=== PATIENT | female | born 1945 | race Caucasian/White ===

== ENCOUNTER → 2017-06-02 | Outpatient (CLI) | payer BC, MEDICARE ==
[2016-02-28 07:53] VITALS: BP 112/66
[~2017-06-02] MED LIST: ASPI-630 PO; BUDE10.2 IH; ESTR1TAB15 PO; FERR15DR17 PO; FEXO180T16 PO; GLYB2.5T2 PO; HYDR25SU4 RC; INSU100I13 SQ; INSU100I7 SQ; LORA-434 PO; LOSA25TA4 PO; MAGN250T10 PO; OMEP20TA8 PO; QUIN324C PO; SENN1TAB99 PO; SITA1TAB11 PO
--- NOTE | 2017-06-02 15:41 | RAD ---
Left breast ultrasound, 06/02/2017: History: Abnormal mammogram Outside mammograms from 11/24/2016 demonstrated an 8 mm nodule in the upper inner quadrant of the left breast. Reportedly the other scattered fibroglandular densities were stable compared to prior exams. Diagnostic mammography and sonography of this nodule was recommended on the outside report, but apparently not performed. The patient presents at this institution for sonographic evaluation of this nodule. The upper inner quadrant of the left breast was carefully scanned. There is a 6 mm hypoechoic nodule at the 9:30 location located 3 cm from the nipple. This may correspond to the mammographic abnormality, however, that cannot be stated with certainty. The nodule demonstrates faint internal echoes with minimal posterior acoustic enhancement. This is probably a complicated cyst. No other abnormality was identified in this region. IMPRESSION: Probable complicated cyst at the 9-10:00 location in the left breast which may correspond to the nodule seen on the mammograms. It has been 6 months since the patient's previous mammograms. Repeat left mammography is suggested at this time, and if the nodule is stable, bilateral mammography and a repeat left breast ultrasound in 6 months is suggested to establish stability. BI-RADS 3-probably benign findings
== END | disposition home or self-care (01) ==
LOC: US 14:42
PROVIDERS: ATTEND Physician Assistant
DX: R92.8 Other abnormal and inconclusive findings on diagnostic imaging of breast (principal)
CPT/HCPCS: 76641

== ENCOUNTER → 2017-06-08 | Outpatient (CLI) | payer BC, MEDICARE ==
[2016-02-28 07:53] VITALS: BP 112/66
--- NOTE | 2017-06-08 12:52 | RAD ---
EXAM: DIGITAL DIAGNOSTIC LT HISTORY: Left breast mass on screening mammogram and ultrasound COMPARISON: November 24, 2016 and 10/23/2013 Standard mammographic views are obtained of the left breast. This study was interpreted with the benefit of Computerized Aided Detection (CAD). FINDINGS: The breast parenchyma shows scattered fibroglandular densities. Breast parenchyma level II. There is a well-circumscribed mass again identified within the medial upper left breast measuring approximately 8 mm which is similar to prior. There is repeat demonstration of numerous calcifications scattered throughout the left breast. IMPRESSION: Similar appearance of well-circumscribed breast mass when compared to prior examination. Recommend that the patient return in 6 months for a repeat diagnostic mammogram and ultrasound to ensure no increase. BI-RADS CATEGORY: 3 PROBABLE BENIGN-SHORT TERM F/U RECOMMENDED FOLLOW-UP: 6M 6 MONTH FOLLOW-UP PQRS compliance statement: Patient information was entered into a reminder system with a target due date for the next mammogram. Mammography is a sensitive method for finding small breast cancers, but it does not detect them all and is not a substitute for careful clinical examination. A negative mammogram does not negate a clinically suspicious finding and should not result in delay in biopsying a clinically suspicious abnormality. "Our facility is accredited by the [employer] Mammography Program."
== END | disposition home or self-care (01) ==
LOC: MAMMO 12:04
PROVIDERS: ATTEND Family Medicine
DX: N63 Unspecified lump in breast (principal)
CPT/HCPCS: G0206; 77065

== ENCOUNTER → 2017-10-06 | Outpatient (CLI) | payer MEDICARE, BC ==
[2017-07-03 11:00] VITALS: BP 146/75
--- NOTE | 2017-10-06 11:58 | RAD ---
Chest radiograph Two Views 10/06/2017 Clinical indication: Dyspnea Comparison: 07/02/2017 chest radiograph Findings: Cardiac and mediastinal silhouettes are within normal limits. No pleural effusion, pneumothorax or focal consolidation. Impression: No acute cardiopulmonary abnormality.
--- NOTE | 2017-10-06 13:02 | RAD ---
Ventilation/perfusion lung scan, 10/06/2017: History: Shortness of breath, dyspnea The ventilation study was performed utilizing 21 mCi of xenon-133. Activity in the lungs is symmetric. There is good washout of the xenon from the lungs. Hepatic activity is noted, typically due to hepatic steatosis. Perfusion imaging was performed utilizing 6.3 mCi of technetium 99m MAA. A similar pattern of activity is present in the lungs. No segmental or significant unmatched perfusion defects are seen. IMPRESSION: 1. There are no VQ findings to suggest pulmonary emboli.. 2. Incidental note is made of probable hepatic steatosis.
== END | disposition home or self-care (01) ==
LOC: NM 09:44
PROVIDERS: ATTEND Internal Medicine Critical Care Medicine
DX: R06.00 Dyspnea, unspecified (principal); R06.02 Shortness of breath
CPT/HCPCS: 71020; 78582; 96374; A9540; A9558

== ENCOUNTER → 2017-10-19 | Outpatient (CLI) | payer MEDICARE, BC ==
[2017-07-03 11:00] VITALS: BP 146/75
--- NOTE | 2017-10-19 16:03 | RAD ---
Renal ultrasound, 10/19/2017: History: Hematuria The right kidney measures 10.9 cm in length while the left kidney measures 11.6 cm. There is no evidence of hydronephrosis or a renal mass. The renal parenchymal echogenicity is within normal limits. Limited views of urinary bladder show no abnormality. IMPRESSION: No significant renal abnormality is detected.
== END | disposition home or self-care (01) ==
LOC: US 14:33
PROVIDERS: ATTEND Physician Assistant
DX: R31.29 Other microscopic hematuria (principal)
CPT/HCPCS: 76770

== ENCOUNTER 2018-09-24 01:01 | Emergency (ER) | payer BC, MEDICARE ==
[~2018-09-24] VITALS: Ht 157.5 cm; Wt 70.3 kg
[~2018-09-24 01:01] MED LIST changes: -LOSA25TA4 PO; +LOSA25TA5 PO
--- NOTE | 2018-09-24 01:38 | PHYS DOC ---
Past Medical History Past Medical History: Diabetes-Type I, Diverticulitis, Hypertension Past Surgical History: , Hysterectomy Additional Past Surgical Histo: COLON RESECTION, HERNIA Additional Information: Nonsmoker Alcohol Use: None Drug Use: None Adult General Chief Complaint Chief Complaint: ABDOMINAL PAIN HPI HPI Patient is a 72 year old female presenting to the ED due to abdominal pain. Patient states that the pain started suddenly while she was watching TV around 9 PM. Patient states that this has happened to her before about 4 times, all of which resolved after receiving Dilaudid in the emergency department or as an inpatient. She describes her current pain as a squeezing pain that is located in the epigastric region in a bandlike pattern radiating around the back on both sides. Nothing makes it better or worse. She states that she is in constant pain. She states that she is more comfortable sitting than lying down. Currently complaining of nausea, but denies any chest pain, shortness of breath , leg swelling, or joint pain. Review of Systems Review of Systems Constitutional: Denies fever or chills [] Eyes: Denies change in visual acuity, redness, or eye pain [] HENT: Denies nasal congestion or sore throat [] Respiratory: Denies cough or shortness of breath [] Cardiovascular: Denies chest pain GI: Reports abdominal pain and nausea. denies vomiting, diarrhea, constipation. : Denies dysuria or hematuria [] Musculoskeletal: Denies back pain or joint pain [] Integument: Denies rash or skin lesions [] Neurologic: Denies headache, focal weakness or sensory changes [] Complete systems were reviewed and found to be within normal limits, except as documented in this note. Current Medications Current Medications Current Medications Medications (Trade) Dose Ordered Sig/Liang Start Time Stop Time Status Last Admin Dose Admin Famotidine (Pepcid Vial) 20 mg 1X ONCE 09/24/18 02:00 09/24/18 02:01 DC 09/24/18 02:21 20 MG Fentanyl Citrate (Fentanyl 2ml Vial) 50 mcg 1X ONCE 09/24/18 04:00 09/24/18 04:01 Info (CONTRAST GIVEN -- Rx MONITORING) 1 each PRN DAILY PRN 09/24/18 03:00 09/26/18 02:59 Iohexol (Omnipaque 300 Mg/ml) 75 ml 1X ONCE 09/24/18 03:00 09/24/18 03:01 DC 09/24/18 03:03 75 ML Magnesium Sulfate 50 ml @ 25 mls/hr 1X ONCE 09/24/18 03:30 09/24/18 05:29 Ondansetron HCl (Zofran) 4 mg 1X ONCE 09/24/18 02:00 09/24/18 02:01 DC 09/24/18 02:21 4 MG Allergies Allergies Allergies Coded Allergies Type Severity Reaction Last Updated Verified Sulfa (Sulfonamide Antibiotics) Allergy Intermediate Hives 07/02/17 Yes adhesive tape Allergy Unknown 07/02/17 Yes Physical Exam Physical Exam Constitutional: Well developed, well nourished, no acute distress, non-toxic appearance. [] HENT: Normocephalic, atraumatic, bilateral external ears normal, oropharynx moist Eyes: PERRL, EOMI, conjunctiva normal, no discharge. [] Neck: Normal range of motion, no tenderness, supple, no stridor. [] Cardiovascular:Heart rate regular rhythm, no murmur [] Lungs & Thorax: Bilateral breath sounds clear to auscultation [] Abdomen: Mild tenderness in the epigastric region, ventral hernia appreciated Skin: Warm, dry, no erythema, no rash. [] Back: No tenderness, no CVA tenderness. [] Extremities: No tenderness, no cyanosis, no clubbing, ROM intact, no edema. [] Neurologic: Alert and oriented X 3, normal motor function, normal sensory function, no focal deficits noted. [] Psychologic: Affect normal, judgement normal, mood normal. [] Current Patient Data Vital Signs Vital Signs Date Time Temp Pulse Resp B/P (MAP) Pulse Ox O2 Delivery O2 Flow Rate FiO2 09/24/18 03:10 91 16 129/60 (83) 97 Room Air 09/24/18 01:10 97.4 97.4 Lab Values Laboratory Tests Test 09/24/18 02:05 09/24/18 03:10 White Blood Count 10.4 x10^3/uL (4.0-11.0) Red Blood Count 3.99 x10^6/uL (3.50-5.40) Hemoglobin 13.1 g/dL (12.0-15.5) Hematocrit 38.1 % (36.0-47.0) Mean Corpuscular Volume 96 fL (79-100) Mean Corpuscular Hemoglobin 33 pg (25-35) Mean Corpuscular Hemoglobin Concent 34 g/dL (31-37) Red Cell Distribution Width 13.9 % (11.5-14.5) Platelet Count 143 x10^3/uL (140-400) Neutrophils (%) (Auto) 73 % (31-73) Lymphocytes (%) (Auto) 17 % (24-48) L Monocytes (%) (Auto) 8 % (0-9) Eosinophils (%) (Auto) 2 % (0-3) Basophils (%) (Auto) 1 % (0-3) Neutrophils # (Auto) 7.6 x10^3uL (1.8-7.7) Lymphocytes # (Auto) 1.7 x10^3/uL (1.0-4.8) Monocytes # (Auto) 0.8 x10^3/uL (0.0-1.1) Eosinophils # (Auto) 0.2 x10^3/uL (0.0-0.7) Basophils # (Auto) 0.1 x10^3/uL (0.0-0.2) Prothrombin Time 14.2 SEC (11.7-14.0) H Prothrombin Time INR 1.2 (0.8-1.1) H PTT 30 SEC (24-38) Sodium Level 140 mmol/L (136-145) Potassium Level 4.1 mmol/L (3.5-5.1) Chloride Level 102 mmol/L (98-107) Carbon Dioxide Level 29 mmol/L (21-32) Anion Gap 9 (6-14) Blood Urea Nitrogen 15 mg/dL (7-20) Creatinine 0.8 mg/dL (0.6-1.0) Estimated GFR (Cockcroft-Gault) 70.5 BUN/Creatinine Ratio 19 (6-20) Glucose Level 137 mg/dL (70-99) H Calcium Level 9.8 mg/dL (8.5-10.1) Magnesium Level 1.6 mg/dL (1.8-2.4) L Total Bilirubin 0.6 mg/dL (0.2-1.0) Aspartate Amino Transferase (AST) 42 U/L (15-37) H Alanine Aminotransferase (ALT) 55 U/L (14-59) Alkaline Phosphatase 42 U/L (46-116) L Creatine Kinase 92 U/L (26-192) Creatine Kinase MB (Mass) 1.1 ng/mL (0.0-3.6) Creatine Kinase MB Relative Index 1.2 % (0-4) Troponin I Quantitative < 0.017 ng/mL (0.000-0.055) Total Protein 7.8 g/dL (6.4-8.2) Albumin 3.7 g/dL (3.4-5.0) Albumin/Globulin Ratio 0.9 (1.0-1.7) L Lipase 259 U/L (73-393) Urine Collection Type Unknown Urine Color Yellow Urine Clarity Clear Urine pH 5.5 Urine Specific [place] >=1.030 Urine Protein Negative mg/dL (NEG-TRACE) Urine Glucose (UA) Negative mg/dL (NEG) Urine Ketones (Stick) Negative mg/dL (NEG) Urine Blood Negative (NEG) Urine Nitrite Negative (NEG) Urine Bilirubin Negative (NEG) Urine Urobilinogen Dipstick 0.2 mg/dL (0.2 mg/dL) Urine Leukocyte Esterase Negative (NEG) Urine RBC 0 /HPF (0-2) Urine WBC Occ /HPF (0-4) Urine Squamous Epithelial Cells Few /LPF Urine Bacteria Few /HPF (0-FEW) Urine Mucus Slight /LPF Laboratory Tests 09/24/18 02:05 Laboratory Tests 09/24/18 02:05 EKG EKG @0200: Normal sinus rhythm at 84 bpm, normal axis, no ST elevation. Radiology/Procedures Radiology/Procedures PROCEDURE: CT ABD PELV W/ IV CONTRST ONLY CT SCAN OF THE ABDOMEN AND PELVIS WITH IV CONTRAST. History: Abdominal pain Comparison:January 20, 2010. Procedure: Contiguous axial images of the abdomen and pelvis were performed after the administration of 75 cc of Omni 300 IV contrast and without oral contrast. CT Abdomen with contrast: Findings: Liver: Unremarkable Spleen: Unremarkable Pancreas: Unremarkable Adrenal Glands: Unremarkable Kidneys: Unremarkable There are a few small lymph nodes in the khadar hepatis. The gallbladder is distended and is a few tiny stones but no surrounding fluid or inflammation.. There is no free air. There is no free fluid. CT Pelvis with Contrast: Findings: The urinary bladder appears normal. There is no free fluid. There is no lymphadenopathy. The appendix is not well seen. Impression: 1. There are few tiny stones in the gallbladder and the gallbladder is well distended but no wall thickening or surrounding inflammation suggesting acute cholecystitis. 2. No acute findings. PQRS Compliance Statement: One or more of the following individualized dose reduction techniques were utilized for this examination: 1. Automated exposure control 2. Adjustment of the mA and/or kV according to patient size 3. Use of iterative reconstruction technique Electronically signed by: Michel Lynch III, MD (09/24/2018 3:26 AM) [facility] Course & Med Decision Making Course & Med Decision Making 72 yo female presenting to the ED due to abdominal pain which patient reports she has experienced previously. Pain/nausea addressed. IVF hydration given. Labs obtained and posted to chart. Hypomagnesemia addressed. CT abdomen/pelvis without acute process. Notation of cholelithiasis without signs of acute cholecystitis noted. Patient stable for discharge with outpatient follow-up with PCP/Gen. surgery. Discussed findings and plan with patient and family, who acknowledge understanding and agreement. Dragon Disclaimer Dragon Disclaimer This electronic medical record was generated, in whole or in part, using a voice recognition dictation system. Departure Departure Impression: Primary Impression: Abdominal pain Additional Impressions: Hypomagnesemia Cholelithiasis Disposition: HOME, SELF-CARE Condition: STABLE Referrals: RADHA PAYTON MD (PCP) LOREN APARICIO MD Patient Instructions: Abdominal Pain (Nonspecific), Cholelithiasis, Easy-to- Read, Hypomagnesemia Scripts Ondansetron (ZOFRAN ODT) 4 Mg Tab.rapdis 4 MG PO TID PRN PRN for NAUSEA/VOMITING, #14 TAB Prov: BRIA SANTOS DO 09/24/18 Problem Qualifiers Primary Impression: Abdominal pain Abdominal location: unspecified location Qualified Codes: R10.9 - Unspecified abdominal pain Additional Impressions: Cholelithiasis Cholelithiasis location: gallbladder Cholecystitis presence: without cholecystitis Biliary obstruction: without biliary obstruction Qualified Codes: K80.20 - Calculus of gallbladder without cholecystitis without obstruction BRIA SANTOS DO Sep 24, 2018 01:38
[2018-09-24] MEDS ORDERED: ONDANSETRON PF 4 MG/2 ML VIAL. IV ONE (02:00)
[2018-09-24] MEDS ORDERED: FAMOTIDINE 20 MG/2 ML VIAL IVP ONE (02:00)
[2018-09-24] MEDS ORDERED: fentaNYL PF VIAL 100 MCG/2 ML VIAL IV ONE ×2 (02:00→04:00)
[2018-09-24 02:14] LABS: BASO # 0.1 x10^3/uL (0.0-0.2); BASO % 1 % (0-3); EOS # 0.2 x10^3/uL (0.0-0.7); EOS % 2 % (0-3); HEMATOCRIT 38.1 % (36.0-47.0); HEMOGLOBIN 13.1 g/dL (12.0-15.5); LYMPH # 1.7 x10^3/uL (1.0-4.8); LYMPH % 17 % (24-48); MEAN CORPUSCULAR HEMOGLOBIN 33 pg (25-35); MEAN CORPUSCULAR HGB CONC 34 g/dL (31-37); MEAN CORPUSCULAR VOLUME 96 fL (79-100); MONO # 0.8 x10^3/uL (0.0-1.1); MONO % 8 % (0-9); NEUT # 7.6 x10^3uL (1.8-7.7); NEUT % 73 % (31-73); PLATELET COUNT 143 x10^3/uL (140-400); RED BLOOD COUNT 3.99 x10^6/uL (3.50-5.40); RED CELL DISTRIBUTION WIDTH 13.9 % (11.5-14.5); WHITE BLOOD COUNT 10.4 x10^3/uL (4.0-11.0)
[2018-09-24 02:24] LABS: PROTHROMBIN TIME PATIENT 14.2 SEC (11.7-14.0)
[2018-09-24 02:31] LABS: CALCIUM 9.8 mg/dL (8.5-10.1); CREATININE 0.8 mg/dL (0.6-1.0); GFR 70.5; POTASSIUM 4.1 mmol/L (3.5-5.1)
[2018-09-24 02:37] LABS: ALBUMIN 3.7 g/dL (3.4-5.0); ALBUMIN/GLOBULIN RATIO 0.9 (1.0-1.7); MAGNESIUM 1.6 mg/dL (1.8-2.4); TOTAL BILIRUBIN 0.6 mg/dL (0.2-1.0); TOTAL PROTEIN 7.8 g/dL (6.4-8.2)
[2018-09-24] MEDS ORDERED: IOHEXOL 300 MG/ML 100ML VIAL. IV ONE (03:00)
[2018-09-24] MEDS ORDERED: CONTRAST GIVEN. MC PRN (03:00)
[2018-09-24 03:21] LABS: BILIRUBIN,URINE NEGATIVE (NEG); CLARITY,URINE CLEAR; COLOR,URINE YELLOW; NITRITE,URINE NEGATIVE (NEG); PH,URINE 5.5; PROTEIN,URINE NEGATIVE (NEG-TRACE); UROBILINOGEN,URINE 0.2 mg/dL (0.2 mg/dL)
[2018-09-24 03:26] LABS: BACTERIA,URINE FEW /HPF (0-FEW); RBC,URINE 0 /HPF (0-2); SQUAMOUS EPITHELIAL CELL,UR FEW /LPF; WBC,URINE OCC /HPF (0-4)
[2018-09-24] MEDS ORDERED: MAGNESIUM SULFATE 2GM 50 ML IV ONE (03:30)
--- NOTE | 2018-09-24 03:30 | RAD ---
CT SCAN OF THE ABDOMEN AND PELVIS WITH IV CONTRAST. History: Abdominal pain Comparison:January 20, 2010. Procedure: Contiguous axial images of the abdomen and pelvis were performed after the administration of 75 cc of Omni 300 IV contrast and without oral contrast. CT Abdomen with contrast: Findings: Liver: Unremarkable Spleen: Unremarkable Pancreas: Unremarkable Adrenal Glands: Unremarkable Kidneys: Unremarkable There are a few small lymph nodes in the khadar hepatis. The gallbladder is distended and is a few tiny stones but no surrounding fluid or inflammation.. There is no free air. There is no free fluid. CT Pelvis with Contrast: Findings: The urinary bladder appears normal. There is no free fluid. There is no lymphadenopathy. The appendix is not well seen. Impression: 1. There are few tiny stones in the gallbladder and the gallbladder is well distended but no wall thickening or surrounding inflammation suggesting acute cholecystitis. 2. No acute findings. PQRS Compliance Statement: One or more of the following individualized dose reduction techniques were utilized for this examination: 1. Automated exposure control 2. Adjustment of the mA and/or kV according to patient size 3. Use of iterative reconstruction technique Electronically signed by: Michel Lynch III, MD (09/24/2018 3:26 AM) [facility]
[2018-09-24] MEDS ORDERED: GLIM4TAB2 PO (03:36)
[2018-09-24] MEDS ORDERED: METF10007 PO (03:36)
[2018-09-24] MEDS ORDERED: POTA99TA3 PO (03:36)
[2018-09-24] MEDS ORDERED: ONDA4TAB10 PO (03:47)
[2018-09-24] MEDS ORDERED: MAGNESIUM OXIDE 400 MG TABLET PO ONE (04:00)
[2018-09-24 04:10] VITALS: BP 137/70
[2018-09-24] MEDS ORDERED: SENN-121 PO (04:27)
[2018-09-24] MEDS ORDERED: HYDR-971 PO (04:27)
--- NOTE | 2018-09-24 05:07 | EKG ---
[facility] [address] [place] [address] Test Date: 2018-09-24 Test Time: 01:56:56 Pat Name: CHITO DANIEL Department: Room: Gender: F Computer Programmer Chief: JOSHUA : 1945 Requested By: BRIA SANOTS Order Number: [id number] Reading MD: Measurements Intervals [place] Rate: 84 P: 45 [place]: 154 QRS: 34 QRSD: 80 T: 52 QT: 384 QTc: 457 Interpretive Statements SINUS RHYTHM NORMAL ECG No previous ECG available for comparison
== END 2018-09-24 04:25 | disposition home or self-care (01) ==
LOC: ER 01:01
DX: K80.20 Calculus of gallbladder without cholecystitis without obstruction (principal); E83.42 Hypomagnesemia; I10 Essential (primary) hypertension; E10.9 Type 1 diabetes mellitus without complications; Z90.710 Acquired absence of both cervix and uterus; Z88.2 Allergy status to sulfonamides; Z88.8 Allergy status to other drugs, medicaments and biological substances
CPT/HCPCS: 36415; 74177; 80053; 81001; 82553; 83690; 83735; 84484; 85025; 85610; 85730; 93005; 96374; 96375; 96376; 99285; J2405; J3010; J3490; Q9967

== ENCOUNTER → 2021-03-18 | Outpatient (CLI) | payer BC ==
[~2021-03-18] MED LIST changes: +ESTR-113 PO; -ESTR1TAB15 PO; +GLIM4TAB8 PO; +HYDR-3164 PO; -LOSA25TA5 PO; +LOSA25TA54 PO; +METF10007 PO; +ONDA4TAB10 PO; +POTA99TA3 PO; +SENN-121 PO
--- NOTE | 2021-03-18 11:11 | RAD ---
PROCEDURE: US BREAST BILAT, MG DIGITAL BILAT DIAGNOSTIC MAMMO WITH ASHLY HISTORY: The patient is 75 years old and is seen for Reason: Abnormal Mamm / Spl. Instructions: / Hi story: . COMPARISON: November 24, 2016 and June 08, 2017 TECHNIQUE: CC and MLO views of both breasts were obtained. Images were processed by the [employer] computer-aided detection system. Bilateral ultrasound were also performed. DENSITY: There are scattered fibroglandular densities. FINDINGS: Right breast mammogram: Patient is probable concern associated with right medial breast mole demonstr ates no underlying asymmetry or calcification. Several new well-circumscribed masses within the right upper outer breast approximately 5.7 and 4.7 cm from the nipple. Dystrophic calcifications, unchange d. Biopsy marker noted. Right breast ultrasound: Complicated hypoechoic lesion within the right breast 10:00 position measure s 0.4 cm approximately 6 cm from the nipple. Additional complicated hypoechoic lesion within the righ t breast 11:00 position approximate 7 cm from the nipple measures 0.4 x 0.2 cm. Additional hypoechoic cystic lesion within the right breast 11:00 position 7.5 cm from the nipple measures 0.4 x 0.3 cm. N o abnormality within the right axilla. Left breast mammogram: Previously seen left medial breast mass has decreased in size. New rounded jolly ast masses within the left superior breast approximately 6.2 and 7.2 cm from the nipple best seen on the MLO view. Scattered dystrophic calcifications, unchanged. Biopsy marker noted. Left breast ultrasound: Rounded hypoechoic complicated lesions within the left breast 12:00 position measure 0.3 and 0.2 cm. Additional small hypoechoic lesion within the 12:00 position 5 cm from the ni pple measures 2 cm. No abnormality within the left axilla. IMPRESSION: Bilateral hypoechoic complicated cystic lesions. Recommend 6 month follow-up mammogram and ultrasound bilaterally. Recommend annual screening mammograms per [employer] guidelines. Patient will be due in six months. BI-RADS category 3 Probably benign Our clinic nurse has been instructed to assist with communicating findings and recommendations to the patient's referring physician and in scheduling follow-up. Patient entered into a reminder system for annual screening mammogram. Electronically signed by: Gaurang Allen DO (03/18/2021 11:08 AM) [id number]
== END ==
LOC: MAMMO 09:48
PROVIDERS: ATTEND Family Medicine
DX: N60.01 Solitary cyst of right breast (principal); N60.02 Solitary cyst of left breast
CPT/HCPCS: 76641; 77066; G0279; 77062